=== PATIENT | male | born 1955 | race Caucasian/White ===

== ENCOUNTER 2017-08-19 22:04 | Inpatient (IN) | payer OTHER ==
[~2017-08-19] VITALS: Ht 167.6 cm; Wt 103.2 kg
[~2017-08-19 22:04] MED LIST: DURAGESIC12 MCG TD; FLOMAX0.4 MG PO; GLUCOPHAGE500 MG PO; LIORESAL10 MG PO; LO-DOSE ASPIRIN81 M1 PO; NEURONTIN800 MG PO; OXYCODONE HCL10 MG PO; ULTRAM50 MG PO; VALIUM5 MG PO; ZANAFLEX4 M1 PO; ZANTAC150 MG PO; ZESTRIL5 MG PO
[2017-08-20 06:26] VITALS: BP 97/59
[2017-08-20 16:17] VITALS: BP 135/64
[2017-08-20 23:58] VITALS: BP 109/55
[2017-08-21 04:06] VITALS: BP 108/59
[2017-08-21 08:21] VITALS: BP 109/65
[2017-08-21 11:59] VITALS: BP 110/63
[2017-08-21 15:37] VITALS: BP 122/66
[2017-08-21 20:17] VITALS: BP 108/55
[2017-08-22 00:01] VITALS: BP 117/63
[2017-08-22 04:18] VITALS: BP 114/71
[2017-08-22 07:50] VITALS: BP 120/64
[2017-08-22 11:39] VITALS: BP 125/60
[2017-08-22 15:51] VITALS: BP 139/66
[2017-08-22] MEDS ORDERED: HYDROMORPHONE HC2 MG PO (16:31)
[2017-08-22] MEDS ORDERED: FENTANYL1 EAC5 TD (16:31)
[2017-08-22] MEDS ORDERED: DIAZEPAM10 MG PO (16:31)
== END 2017-08-22 17:46 | disposition home or self-care (01) | DRG 460 ==
LOC: ENRESERV 22:04 → 2SOUTH 08-20 05:48 → ENRESERV 08-20 14:22 → 3EAST 08-20 15:35
PROVIDERS: Neurological Surgery
DX: M99.03 Segmental and somatic dysfunction of lumbar region (principal); F33.9 Major depressive disorder, recurrent, unspecified; M43.16 Spondylolisthesis, lumbar region; M48.061 Spinal stenosis, lumbar region without neurogenic claudication; M48.07 Spinal stenosis, lumbosacral region; M54.16 Radiculopathy, lumbar region; M54.17 Radiculopathy, lumbosacral region; M54.42 Lumbago with sciatica, left side; M12.88 Other specific arthropathies, not elsewhere classified, other specified site; E11.9 Type 2 diabetes mellitus without complications; I10 Essential (primary) hypertension; F41.0 Panic disorder [episodic paroxysmal anxiety]; F41.9 Anxiety disorder, unspecified; G47.00 Insomnia, unspecified; G25.81 Restless legs syndrome; K21.9 Gastro-esophageal reflux disease without esophagitis; F17.220 Nicotine dependence, chewing tobacco, uncomplicated; E66.9 Obesity, unspecified; Z88.0 Allergy status to penicillin; Z79.82 Long term (current) use of aspirin; Z79.84 Long term (current) use of oral hypoglycemic drugs; Z68.37 Body mass index [BMI] 37.0-37.9, adult
CPT/HCPCS: 72100; 76000; 82948; 86850; 86900; 86901; 94799; J0131; J1100; J1170; J1885; J2250; J2405; J2710; J3010; J3370; J3480; J7643